=== PATIENT | male | born 1980 | race African-American/Black ===

== ENCOUNTER 2018-04-16 19:15 | Emergency (ER) | payer BC ==
[2018-04-16] MEDS ORDERED: NORMAL SALINE 1000 ML 1,000 ML IV ONE ×3 (20:56→22:56)
--- NOTE | 2018-04-16 20:59 | ER Document Report ---
ED General - General Mode of Arrival: Ambulatory Information source: Patient TRAVEL OUTSIDE OF THE [place] IN LAST 30 DAYS: No <TIFFANY SHI - Last Filed: 04/17/18 03:15> <OLVIN CASTRO - Last Filed: 04/17/18 03:17> - General Chief Complaint: Pain All Over Stated Complaint: BODY PAIN Time Seen by Provider: 04/16/18 20:36 Notes: Patient is a 37-year-old male presenting to the emergency department complaining of body cramps onset today. Patient states that he has recently started a new job in [employer] and began to have cramping in his hands, forearms, back and abdomen today. He states he lifted his shirt and he and his coworkers where able to see muscle spasms in his abdomen which he describes as a "charley horse". Patient admits to being a heavy drinker and further states his last alcoholic beverage was around 1800 today. Patient denies any nausea, vomiting, diarrhea or confusion. Of significance, patient denies smoking marijuana but states he was around people who did, room smells of marijuana. (TIFFANY SHI) - Related Data Allergies/Adverse Reactions: No Known Allergies Allergy (Unverified 04/16/18 22:44) Past Medical History - General Information source: Patient - Social History Smoking Status: Never Smoker Cigarette use (# per day): No Chew tobacco use (# tins/day): No Frequency of alcohol use: Heavy Drug Abuse: None Family History: Reviewed & Not Pertinent <TIFFANY SHI - Last Filed: 04/17/18 03:15> Review of Systems - Review of Systems Constitutional: No symptoms reported EENT: No symptoms reported Cardiovascular: No symptoms reported Respiratory: No symptoms reported Gastrointestinal: No symptoms reported Genitourinary: No symptoms reported Male Genitourinary: No symptoms reported Musculoskeletal: See HPI Skin: No symptoms reported Hematologic/Lymphatic: No symptoms reported Neurological/Psychological: No symptoms reported -: Yes All other systems reviewed and negative <TIFFANY SHI - Last Filed: 04/17/18 03:15> Physical Exam <TIFFANY SHI - Last Filed: 04/17/18 03:15> <OLVIN CASTRO - Last Filed: 04/17/18 03:17> - Vital signs Vitals: Temp Pulse Resp BP Pulse Ox 98.8 F 76 18 136/74 H 94 04/16/18 19:21 04/16/18 19:21 04/16/18 19:21 04/16/18 19:21 04/16/18 19:21 - Notes Notes: GENERAL: Alert, mildly agitated, room smells of marijuana. No acute distress. HEAD: Normocephalic, atraumatic. EYES: Pupils equal, round, and reactive to light. Extraocular movements intact. ENT: Oral mucosa moist, tongue midline. NECK: Full range of motion. Supple. Trachea midline. LUNGS: Clear to auscultation bilaterally, no wheezes, rales, or rhonchi. No respiratory distress. HEART: Regular rate and rhythm. No murmurs, gallops, or rubs. ABDOMEN: Soft, non-tender. Non-distended. Bowel sounds present in all 4 quadrants. EXTREMITIES: Moves all 4 extremities spontaneously. Able to ambulate without difficulty. Biceps and patellar DTRs 2+ bilaterally, not hyperreflexive. NEUROLOGICAL: Alert and oriented x3. Normal speech. PSYCH: Normal affect, normal mood. SKIN: Warm, dry, normal turgor. No rashes or lesions noted. (TIFFANY SHI) Course - Laboratory Result Diagrams: 04/16/18 21:25 04/16/18 23:21 <TIFFANY SHI - Last Filed: 04/17/18 03:15> - Laboratory Result Diagrams: 04/16/18 21:25 04/16/18 23:21 <OLVIN CASTRO - Last Filed: 04/17/18 03:17> - Re-evaluation Re-evalutation: 04/16/18 22:57 CBC unremarkable, CMP shows elevated creatinine at 1.33, elevated CK at 1114, CK -MB normal. Urinalysis and urine drug screen pending. Ionized calcium slightly elevated at 10.8, calcium slightly elevated at 10.8, ionized calcium normal at 1.15, magnesium normal. Patient is received 2 L of normal saline, a third will be ordered. Examination and labs are currently consistent with rhabdomyolysis however I am waiting on the urinalysis to confirm this. Intermittently agitated. Tearful in the room. Just informed by nursing that patient had previously gotten quite agitated and demanded his IV be removed and they removed it. Nursing will discuss with him whether or not he will allow us to insert another IV to continue treatment or if we will just recheck labs now. 04/17/18 01:16 Elevated creatinine has improved, decreased from 1.33 down to 1.20, CK has decreased from 1114 to 1080, urine drug screen shows marijuana in his system which she denies using but states he was around other people who are using it. Urine analysis shows trace ketones and small blood. 04/17/18 01:16 No casts in the urine. Patient was sleeping when I went in the room, he appears to be feeling much better, we can see easily. Patient is asked to be off of work for the next 2 days, drink plenty of fluids, avoid exertion and avoid marijuana. Discharged home. (OLVIN CASTRO) - Vital Signs Vital signs: Temp Pulse Resp BP Pulse Ox 98.6 F 56 L 18 126/63 H 100 04/17/18 01:27 04/17/18 01:27 04/16/18 19:21 04/17/18 01:27 04/17/18 01:27 - Laboratory Laboratory results interpreted by me: 04/16/18 04/16/18 04/16/18 21:25 22:37 23:21 Sodium 135.5 L Chloride 95 L Creatinine 1.33 H Calcium 10.8 H Creatine Kinase 1114 H Total Protein 8.7 H Albumin 5.3 H Urine Ketones TRACE H Urine Blood SMALL H 04/16/18 23:21 Sodium Chloride Creatinine Calcium Creatine Kinase 1080 H Total Protein Albumin Urine Ketones Urine Blood Discharge <TIFFANY SHI - Last Filed: 04/17/18 03:15> <OLVIN CASTRO - Last Filed: 04/17/18 03:17> - Discharge Clinical Impression: Rhabdomyolysis Qualifiers: Rhabdomyolysis type: non-traumatic Qualified Code(s): M62.82 - Rhabdomyolysis Condition: Stable Disposition: HOME, SELF-CARE Additional Instructions: You have something called rhabdomyolysis, this is a breakdown of the muscles in your body that comes from over exertion and can cause cramping and pain. It is worsened by exercise, heat, exerting herself at her job and dehydration. It can also be worsened by recreational drug use including marijuana and cocaine. You need to stay off of work for the next 2 days, drink plenty of fluids, at least 2 L of water each day for the next 2 days, you should be drinking enough water that your urine is clear and copious. If your urine becomes dark please return to the emergency department. I do not want you returning to work until the muscle cramping is gone. I have prescribed a muscle relaxer to help with some of the cramping. Only take this if absolutely necessary. Prescriptions: Cyclobenzaprine HCl [Flexeril 5 mg Tablet] 5 mg PO TID #7 tablet Forms: Return to Work Referrals: JUSTIN MCNULTY MD [COMMUNITY BASED STAFF] - Follow up in 3-5 days Scribe Attestation: 04/17/18 03:17 I personally performed the services described in the documentation, reviewed and edited the documentation which was dictated to the scribe in my presence, and it accurately records my words and actions. (OLVIN CASTRO) Scribe Documentation - Scribe Written by Olamide:: Olamide Alford, 04/16/2018 21:04 acting as scribe for :: Jason <TIFFANY SHI - Last Filed: 04/17/18 03:15>
[2018-04-16 21:43] LABS: ABSOLUTE BASOPHILS # (AUTO) 0.1 10^3/uL (0.0-0.2); ABSOLUTE LYMPHOCYTES (AUTO) 2.4 10^3/uL (0.5-4.7); ABSOLUTE MONOCYTES (AUTO) 0.9 10^3/uL (0.1-1.4); ABSOLUTE NEUT (AUTO) 5.2 10^3/uL (1.7-8.2); BASOPHILS % (AUTO) 0.7 % (0-2); EOSINOPHILS % (AUTO) 0.5 % (0-6); HEMATOCRIT 44.9 % (37.9-51.0); HEMOGLOBIN 15.3 g/dL (13.5-17.0); LYMPHOCYTES % (AUTO) 27.8 % (13-45); MEAN CORPUSCULAR HEMOGLOBIN 30.6 pg (27.0-33.4); MEAN CORPUSCULAR VOLUME 90 fl (80-97); MONOCYTES % (AUTO) 10.5 % (3-13); PLATELET COUNT 282 10^3/uL (150-450); SEGMENTED NEUTROPHILS % (AUTO) 60.5 % (42-78); TOTAL CELLS COUNTED % (AUTO) 100 %; WHITE BLOOD COUNT 8.5 10^3/uL (4.0-10.5)
[2018-04-16 21:56] LABS: ALANINE AMINOTRANSFERASE 24 U/L (21-72); ALBUMIN 5.3 g/dL (3.5-5.0); ALKALINE PHOSPHATASE 68 U/L (38-126); ANION GAP 19 (5-19); ASPARTATE AMINO TRANSFERASE 54 U/L (17-59); BILIRUBIN,DIRECT 0.3 mg/dL (0.0-0.4); BILIRUBIN,TOTAL 0.9 mg/dL (0.2-1.3); BLOOD UREA NITROGEN 11 mg/dL (7-20); CALCIUM 10.8 mg/dL (8.4-10.2); CARBON DIOXIDE 24 mmol/L (22-30); CHLORIDE 95 mmol/L (98-107); CREATINE KINASE 1114 U/L (55-170); GLUCOSE 106 mg/dL (75-110); POTASSIUM 4.1 mmol/L (3.6-5.0); SODIUM 137.8 mmol/L (137-145); TOTAL PROTEIN 8.7 g/dL (6.3-8.2)
[2018-04-16 22:55] LABS: APPEARANCE,URINE CLEAR; BILIRUBIN,URINE NEGATIVE (NEGATIVE); COLOR,URINE YELLOW; GLUCOSE, URINE NEGATIVE (NEGATIVE); KETONES,URINE TRACE mg/dL (NEGATIVE); LEUKOCYTE ESTERASE,URINE NEGATIVE (NEGATIVE); NITRITE,URINE NEGATIVE (NEGATIVE); PROTEIN,URINE NEGATIVE (NEGATIVE); URINE SPECIFIC GRAVITY 1.009; UROBILINOGEN,URINE NEGATIVE mg/dL (<2.0)
[2018-04-16] MEDS ORDERED: DIAZEPAM INJ 10 MG/2 ML DISP.SYRIN IV ONE (22:56)
[2018-04-16 23:11] LABS: URINE AMPHETAMINES SCREEN NEGATIVE; URINE BARBITURATES SCREEN NEGATIVE; URINE BENZODIAZEPINES SCREEN NEGATIVE; URINE COCAINE SCREEN NEGATIVE; URINE MARIJUANA (THC) SCREEN UNCONFIRMED POSITIVE; URINE METHADONE SCREEN NEGATIVE; URINE PHENCYCLIDINE SCREEN NEGATIVE
[2018-04-17 00:07] LABS: ANION GAP 10 (5-19); BLOOD UREA NITROGEN 11 mg/dL (7-20); CALCIUM 9.3 mg/dL (8.4-10.2); CARBON DIOXIDE 27 mmol/L (22-30); CHLORIDE 99 mmol/L (98-107); GLUCOSE 101 mg/dL (75-110); POTASSIUM 3.6 mmol/L (3.6-5.0); SODIUM 135.5 mmol/L (137-145)
[2018-04-17 01:41] VITALS: BP 126/63
== END 2018-04-17 01:40 | disposition home or self-care (01) ==
LOC: ER 19:15
DX: M62.82 Rhabdomyolysis (principal); R25.2 Cramp and spasm
CPT/HCPCS: 99283; 96361; 96374; 36415; 82553; 82550; 83735; 85025; 80048; 80053; 81001; 80307; 82330; J3360; J7030